=== PATIENT | female | born 1950 | race Two or more races ===

== ENCOUNTER 2021-10-26 18:46 | Emergency (ER) | payer OTHER ==
[~2021-10-26] VITALS: Ht 165.1 cm; Wt 68.0 kg
[2021-10-26] MEDS ORDERED: HYDROcodone-ACET 10/325MG TAB PO ONE (20:15)
[2021-10-26] MEDS ORDERED: HYDR-4798 PO (20:28)
[2021-10-26 20:53] VITALS: BP 177/96
== END 2021-10-26 21:16 | disposition home or self-care (01) ==
LOC: EDBD 18:46 → ER 18:59
DX: K11.5 Sialolithiasis (principal); I10 Essential (primary) hypertension

== ENCOUNTER 2024-08-25 14:44 | Emergency (ER) | payer OTHER ==
[~2024-08-25 14:44] MED LIST: HYDR-4798 PO
[2024-08-25 16:19] VITALS: BP 143/78; PULSE 68; RESP 16; TEMP 98.4; O2SAT 96
[2024-08-25] MEDS: HYDROcodone-ACET 5/325MG TAB PO ONE (16:38)
[2024-08-25] MEDS: LIDOCAINE 5% TOPICAL PATCH TOP ONE (16:39)
[2024-08-25] MEDS: methylPREDNISolone SOD SUCC 125 MG/2 ML VL IM ONE (16:39)
--- NOTE | 2024-08-25 16:57 | DVH ---
X-ray cervical spine Technique: AP lateral and open-mouth views INDICATION: neck pain FINDINGS: No fractures or dislocations. There are some degenerative changes present at C5-6. IMPRESSION: 1. No acute bony trauma. Degenerative changes.
[2024-08-25] MEDS ORDERED: HYDR-4902 PO (17:06)
[2024-08-25] MEDS ORDERED: LIDO5DIS21 TOP (17:06)
--- NOTE | 2024-08-25 17:09 | ED.PDOC ---
Back pain HPI HPI Comments 73 year old presents for chx cervical pain. No trauma or injury. Worsens with lateral movements. Chief Complaint: Neck Pain Time Seen by MD: 15:41 Primary Care Provider: BISHOP Reviewed Notes: Nurses Notes, Medications, Allergies Allergies: Coded Allergies: Aspirin (Verified Allergy, Unknown, 10/26/21) Cyclobenzaprine (Verified Allergy, Unknown, 10/26/21) Penicillins (Verified Allergy, Unknown, 10/26/21) Home Meds Active Scripts Hydrocodone-Acetaminophen (Hydrocodone Bitartrate/AC 5-325 mg) 1 Tab Tab, 1 TAB PO Q12HP PRN for 2 Days, #4 TAB 0 Refills Prov:MARTHA BARBOZA INVENTORY ANALYST 08/25/24 Lidocaine (LIDODERM 5% TOPICAL PATCH) 1 Patch Ph, 1 PATCH TOP DAILY for 30 Days, #30 PATCH 0 Refills Prov:MARTHA BARBOZA INVENTORY ANALYST 08/25/24 Hydrocodone-Acetaminophen (Hydrocodone Bitartrate/AC 10-325 mg) 1 Tab Tab, 1 TAB PO Q6HPRN PRN, #30 TAB Prov:ANDREINA BLUNT DO 10/26/21 Information Source: Patient Past Medical History PAST MEDICAL HISTORY: HTN Surgical History: Denies all surgeries MANAGER CORE History: No Pertinent MANAGER CORE History Family History Family History: Unknown Social History Smoker: Non-Smoker Alcohol: Denies ETOH Use Drugs: Denies Drug Use All Other Systems: Reviewed and Negative (per hpi) Physical Exam General Appearance: No Apparent Distress, Normal HEENT: Normal ENT Inspection, Pharynx Normal, TMs Normal Neck: Full Range of Motion, Non-Tender, Normal, Normal Inspection Respiratory: Chest Non-Tender, Lungs Clear, No Accessory Muscle Use, No Respiratory Distress, Normal Breath Sounds Cardiovascular: No Murmur, No Gallop, Regular Rate/Rhythm Breast Exam: Deferred Gastrointestinal: No Organomegaly, Non Tender, No Pulsatile Mass, Normal Bowel Sounds, Soft Genitalia: Deferred Pelvic: Deferred Rectal: Deferred Extremities: No calf tenderness, Normal capillary refill, Normal inspection, Normal range of motion, Non-tender, No pedal edema Musculoskeletal : Apperance: Normal Neurologic: Alert, director nicu II-XII nml as Tested, No Motor Deficits, Normal Affect, Normal Mood, No Sensory Deficits Cerebellar Function: Normal Reflexes: Normal Skin: Dry, Normal Color, Warm Lymphatic: No Adenopathy Was a procedure done? Was a procedure done?: No Back Pain Differential Dx Differential Diagnosis: Musculoskeletal Pain X-Ray, Labs, Meds, VS Vital Signs Date Time Temp Pulse Resp B/P (MAP) Pulse Ox O2 Delivery O2 Flow Rate FiO2 08/25/24 16:19 98.4 68 16 143/78 (99) 96 98.4 08/25/24 16:19 68 16 96 Room Air X-Ray, Labs, Meds, VS Comment On reevaluation, patient had symptomatic improvement. Patient is stable for discharge at this time. External notes reviewed. Test results and diagnostic imaging interpreted. All diagnostic findings, discharge care, education and instructions provided Follow-up with PCP in 2 to 3 days Patient verbalized understanding and agreed to treatment plan Vital signs stable, afebrile, no acute distress noted Patient ambulatory with strong steady gait Advised to return precautions for any new or worsening symptoms, return to ER immediately for re-evaluation Patient is aware that the purpose of this visit was for an acute medical emergen cy requiring emergent stabilization. Chronic conditions, including malignancies have not been ruled out. Patient is instructed to follow up with PCP as directed and discharge instructions for continued care and workup. If unable to arrange follow-up, patient is to return to the emergency department for reassessment. Patient (parent or legal guardian if applicable) was given verbal and written discharge instructions and acknowledges understanding. 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, cervical region Disposition: HOME / SELF CARE / HOMELESS Condition: Stable e-Prescriptions Hydrocodone-Acetaminophen (Hydrocodone Bitartrate/AC 5-325 mg) 1 Tab Tab 1 TAB PO Q12HP PRN for 2 Days, #4 TAB 0 Refills Prov: MARTHA BARBOZA INVENTORY ANALYST 08/25/24 Lidocaine (LIDODERM 5% TOPICAL PATCH) 1 Patch Ph 1 PATCH TOP DAILY for 30 Days, #30 PATCH 0 Refills Prov: MARTHA BARBOZA INVENTORY ANALYST 08/25/24 Critical Care Note Critical Care Time?: No Stability Stability form required: No Heart Score Heart Score: Heart Score Response (Comments) Value History N/A 0 EKG N/A 0 Age N/A 0 Risk Factors N/A 0 Troponin N/A 0 Total 0 MARTHA BARBOZA NP Aug 25, 2024 17:09
== END 2024-08-25 17:15 | disposition home or self-care (01) ==
LOC: ER 14:44
DX: G31.89 Other specified degenerative diseases of nervous system (principal); M54.2 Cervicalgia; I10 Essential (primary) hypertension; Z88.0 Allergy status to penicillin; Z88.6 Allergy status to analgesic agent; Z79.899 Other long term (current) drug therapy
CPT/HCPCS: 72040; 96372; 99283; J2919